=== PATIENT | male | born 1935 | race Caucasian/White ===

== ENCOUNTER → 2023-01-19 | Outpatient (CLI) | payer MEDICARE, BC, SELFPAY ==
--- NOTE | 2023-01-19 08:03 | CR.ITP_ITS ---
Diagnosis - General Information Admitting Diagnosis: S/P TAVR Secondary Diagnosis: HTN, HLD, COPD, Asthma Personal Learning Style:: Audio/Visual, Written Barriers to Learning: Hearing Impairment, Vision Impairment Stage of change r/t lifestyle modifications:: Action Gave educational material for:: Treating Heart Disease, Emotions & Heart Disease, Stress Management & Relaxation, Sleep Disorders & Heart Disease, How The Heart Works, What it means to have Heart Disease, How Coronary Artery Disease is Diagnosed, Heart Procedures, What Heart Medications Do, Risk Factors & Modifications, Living an Active Life, Nutrition - Education/Goals Individual Counseling: Initial Assessment: Abnormal Cholesterol Levels, High Blood Pressure, Overweight/Obesity Cardiac Rehabilitation Goals: 1. Maintain the individual as the primary focus of care. 2. To improve the patient's quality of life. 3. Identification of cardiac risk factors and provide cardiac risk factor management. 4. Enhance the psychosocial status of the patient. 5. Reconditioning enough to allow the patient to resume customary activities. 6. Control symptoms of cardiac disease Personal Goals: Initial Assessment: Improve muscle strength and endurance, Control risk factors (learn risk factor modification) Scale for measuring improvement of personal goals: Enter appropriate number in Comments. 2 = Unchanged. 3 = Slightly Better. 4 = Moderate Improvement. 5 = Met my Goal - Diagnosis & Disease Process Outcomes/Goals: Pt IDs own risk factors & lifestyle modifications by Session 10, Verbalizes symptoms of angina & response by session 3., Pt independently manages Plan/Interventions: Assist Pt to ID & engage in lifestyle modification to reduce CVD risk, Instruct on individual risk factors, Review symptoms of angina & emergency actions, Review secondary diagnosis & identify educational needs. - Safety Referral to Physical Therapy: No Referral to [facility] Case Management: No Fall Risk Assessed:: Yes Assistive Devices:: None Exercise - Initial Assessment - Visit Date of Eval: 01/19/23 Session #:: 0 - Pre-CR Evaluation. Patient previously completed 10 of his 36 sessions in [place] before returning to [place]. Mets: Pre-: >7 METS for 30 minutes by discharge - Physician Prescribed Exercise Modalities: Treadmill, Airdyne, NuStep Frequency: 3x/week for 12 weeks [36 sessions] Intensity: 60-80% of age predicted maximum heart rate reserve Duration: 30 - 45 minutes Current METSs:: 3.5 Target Heart Rate:: 101-114 Maximum Excercise HR:: 98 Resting Blood Pressure: 143/83 Maximum Exercise Blood Pressure: 138/66 EKG Type: Normal Sinus Rhythm w/Left Bundle Branch Block Current Physical Activity or Exercising minutes: 47 min - Outcomes & Goals Goals:: Verbalizes understanding of THR, RPE & goal METS by session 6, Documents in home exercise log/reports 30 min aerobic 5 day/wk by DC, Demonstrates accurate pulse taking by DC - Intervention & Plan Exercise Program Goals: Instruct on personal THR & RPE, Instruct on MET level & personal MET goal, Show patient to take own pulse /validate performance until accurate, Instruct on home exercise - Physical Activity Home Exercise Physical Activity - Home Exercise: Safe Exercise, Warm-up, Self-monitoring, Cool-Down, Home Exercise > 30 min Daily, Sitting Time <3 hours/daily - Outcomes & Goals Outcomes/Goals: Demonstrates correct Warm-up/exercise Cool-Down (S3) if = 2.5 METs, Verbalizes symptoms of exercise intolerance by Session 3 (S3), Demonstrate safe equipment use (S3) & follows exercise prescrition (6) - Intervention & Plan Plan/Intervention: Instruct warm-up & cool-down if exercising at > 2 METs, Instruct on symptoms of exercise intolerance & actions to take, Instruct & monitor on saf, Assess intial functional capacity & safety risk Nutrition - Initial Assessment - Program Goals Nutrition Program Goals: LDL <100 optimal. 100 - 129 Near optimal. 130 - 159 Borderline High. 160 - 189 High. Total Cholesterol <200 desirable. 200 - 239 Borderline High. >/= 240 High. HDL < 40 Low >/=60 High. Triglycerides <150 desirable. <199 optimal. VlDL 5 - 40. HgbA1C <7%. BMI <25 Patient has diagnosis of Hyperlipidemia (ICD E78)?: Yes - Visit Date of Assessment:: 01/19/23 Session #:: 0 - COmpleted 10 sessions in [place] - Cholesterol/Lipids (Other Core Measures) Determine presence & major risk factors that modify LDL goal: Hypertension or hypertensive medication, Family history of premature CHD in Male < 55 years: female <65 yearsFa, Age men > 45 years; women >/= 55 years Outcomes/Goals: Pt IDs own risk factors & lifestyle modifications by Session 10, Pt independently manages Intervention/Plan: Instruct on personal lipid levels & lipid goals/NCEP guidelines, Instruct on cholesterol Referral to dietitian:: Yes - Medical Nutrition Therapy - Diabetes (Other Core Measures) Diabetes Type: Not Applicable - Weight Mgt (Other Care) Height: 5 ft 11.5 in Weight:: 216 lb BMI: 29.7 Diagnosis Overweight/Obesity BMI> 30% ICD-10 E66: No Diagnosis High BMI/Morbid Obesity BMI> 35% ICD-10 Z68: No Outcomes/Goals: Pt sets, maintains & shows weight loss goal & trend during rehab Intervention/Plan: Instruct on ideal BMI & set weight loss goal w/patient, Assist pt to ID & incorporate diet changes for weight loss by S9 - Healthy Eating Habits Will attend diet classes:: Yes Outcomes/Goals:: Consume diet rich in vegs,fruits,whole grain/high fiber,fish,lean meat, Limit sat/trans fats,cholesterol & added salts & sugars Intervention/Plan:: Assess current eating habits - Education Gave educational materials for:: Healthy eating Nutrition - 30-Day Assessment Nutrition - 60-Day Assessment Nutrition - 90-Day Assessment Nutrition - Final Assessment Core - Initial Assessment - Visit Date of Eval: 01/19/23 Session #:: 0 - Completed 10 session in [place]; transferring care to [facility]. - Medication Compliance Preventative Medication(s):: Aspirin, Statin/lipid, Beta shelli H/O mental health issues: depression, anxiety, or addiction?: No Doesn?t believe in the benefits of treatment?: No Believes medications are unnecessary or harmful?: No Has a concern about medication side effects?: No Expresses concern over the cost of medications?: No Outcomes/Goals: Verbalizes medications,desired effect & common side effects @ DC, Pt self-reports following medication regimen, Keeps card in wallet w/medications listed by DC Interventions/plans: Instruct on medication effects & side effects, Review medication list w/patient every two weeks, Instruct importance of taking meds as ordered & assist problem solving - Tobacco Use Tobacco Use: Non-smoker - Hypertension Hypertension Diagnosis:: Hypertension ICD-10 I10 Resting Blood Pressure:: 143/83 [employer] [place] [employer] Hypertension Guidelines: [employer] [place] [employer] Hypertension Guidelines. Normal BP Less than 120/80. Elevated BP 120/80. Hypertension Stage 1: BP 130-139/80-89. Hypertesnion Stage 2: BP 140 or higher/90 or higher. Hypertension Crisis: BP higher than 180/120 Peak Exercise Blood Pressure:: 138/66 Outcomes/Goals: Able to verbalize/achieve optimal blood pressure <130/80, Incorporates diet changes & exercise for blood pressure control by DC Interventions/plan: Instruct on optimal blood pressure, hypertension & medications, Instruct on effects of sodium, alcohol, stress, exercise &hypertension - Tobacco Cessation Referral Smoking Cessation Referral:: No Individual Education/Counseling:: No Education Schedule Given:: Yes Core - 30-Day Assessment Core - 60-Day Assessment Core - 90 Day Assessment Core - Final Assessment Psychosocial - Initial Assess - VIsit Date of Eval: 01/19/23 Session #:: 0 - Completed 10 sessions completed in [place] Not Applicable: Yes History of previous Mental disease:: No - Psychosocial Test Tool Used:: [place] QOL Cardiac, PHQ-9 Questionnaire phq-9 Severity: Severity. 1-4 Minimal Depression. 5-9 Mild Depression. 10-14 Moderate Depression. 15-19 Moderately Sever Depression. 20-27 Severe Depression. Rule: - Referral to Behavioral Health PS - Interventions: Yes Attend Stress Management Classes, No Referral to Behavioral Health if PHQ-9 score >9:, No Referral to [facility], No Referral to Physician if PHQ-9 if score is 5-9: - Outcomes/Goals: See list Psychosocial Outcomes/Goals:: ID's personal stressors & 2 strategies to manage stress by discharge - Intervention/Plan: See List Interventions/Plan:: Assess stressors,coping strategies & signs of derpression on admission, Instruct/assist pt to develop coping & personal stress Mgt strategies, Instruct patient to recognize signs & symptoms of depression, Instruct patient to recog Psychosocial - 30-Day Assess Psychosocial - 60-Day Assess Psychosocial - 90-Day Assess Psychosocial - Final Assessmen Patient Health Questionnaire Initial Assessment 1. Little interest or pleasure in doing things: Not at all 2. Feeling down, depressed, or hopeless: Not at all 3. Trouble falling or staying asleep, or sleeping too much: Nearly every day 4. Feeling tired or having little energy: Not at all 5. Poor appetite or overeating: Not at all 6. Feeling bad about yourself -- or that you are a failure or have let yourself or your family down: Not at all 7. Trouble concentrating on things, such as reading the newspaper or watching television: Not at all 8. Moving or speaking so slowly that other people could have noticed. Or the opposite - being so fidgety or restless that you have been moving around a lot m ore than usual: Not at all 9. Thoughts that you would be better off , or of hurting yourself in some way: Not at all How difficult have these problems made it for you to do your work, take care of things at home, or get along with other people?: Not difficult at all Total Score: 3 EDGARDO-Q SV Test - Statements CAD is a disease of the arteries in the heart: I Don't Know Examples of risk factors for heart disease: True Angina is chest pain or discomfort: True The benefits of resistance training include: True Eating more meat and dairy products: False Anti-platelet medications such as aspirin are important: True The only effective way to manage stress: False An exercise warm-up slowly increases heart rate: True Prepared, processed foods usually have high sodium: True Depression is common after a heart attack: I Don't Know The statin medications lower cholesterol: I Don't Know To control blood pressure, lower the amount of sodium: True If someone gets chest discomfort during walking: False Transfats are partially hydrogenated vegetable oils: True Sleep apnea that is not treated increases the risk: I Don't Know To control cholesterol, one should become a vegetarian: False Someone knows if he/she is exercising at the right level: True Diabetes cannot be prevented with exercise & health eating: I Don't Know Stress is a large risk for heart attack: True A diet that can help lower blood pressure is rich in: True - Total Score Total Correct Responses: 15 Self-Efficacy Initial Assessment We would like to know how confident you are in doing certain activities. Please select your confidence level for:: Select your confidence level for the following using the scale 1-10 where 1 is not at all confident and 10 is totally confident. Your score is the average of all 6 responses. Fatigue: How confident are you that you can keep the fatigue caused by your disease from interfering with the things you want to do? Select Number: 10 Physical Discomfort or Pain: How confident are you that you can keep the physical discomfort or pain of your disease from interfering with the things you want to do? Select Number: 10 Emotional Distress: How confident are you that you can keep the emotional distress caused by your disease from interfering with the things you want to do? Select Number: 10 Other Symptoms or Health Problems: How confident are you that you can keep other symptoms or health problems from interfering with the things you want to do? Select Number: 10 Different Tasks and Activities: How confident are you that you can do the different tasks and activities needed to manage your health condition so as to reduce your need to see a doctor? Select Number: 5 Medication: How confident are you that you can do things other than just taking medication to reduce how much your illness affects your everyday life? Select Number: 10 Total Score:: 9 Nutrition Survey - Nutrition Survey Initial Have you lost >10 lbs over the past 2 months without trying?: No Are you following a special diet at home for diabetes, low fat, or low salt?: Yes Are you interested in meeting with a dietitian for help understanding your diet?: No Do you eat less than 3 meals a day?: Yes Do you eat fatty meats (quintero, sausage, ribs, etc), fried foods, desserts, large amounts of salad dressings, margarine, butter, or cheese most days?: No Do you have food allergies? [Enter types in comment field]: Yes - PEANUTS, WATER CHESTNUTS, PEAS, EDAMEMS Do you eat in restaurants more than 3 times a week?: No Do you season food with salt, seasoning salt, or garlic salt?: No Do you used canned, boxed, frozen meals, or soups, seasoning packets?: No Total Score:: 3
--- NOTE | 2023-01-19 08:03 | PCM.CR.HP2 ---
CR - History & Physical - General Arrival date:: 01/19/23 Arrival time:: 08:04 Date of Referral:: 01/17/23 Date of CR Evaluation:: 01/19/23 Referring Physician: Dr. Almeida @ [facility] Primary Diagnosis: S/P TAVR - History of Present Cardiac Event Onset Date: Enter Onset Date of cardiac illnesses in Comment field below Heart valve replacement or repair:: Yes - 09/24/2022 Dr. Arce in [place] Type of Symptoms:: Aortic valve stenosis and insufficiency Interventions with present event:: TAVR Were there any complications?: None - Sleep Disorder Evaluation Hx of Sleep Apnea: No Do you snore loudly (louder than talking or can be heard through closed doors)?: Yes Do you often feel tired/ fatigued/ sleepy during daytime?: Yes Has anyone observed you stop breathing during sleep?: No History of Hypertension (for STOP score): Yes STOP Results: Positive - Medications Home Medications: Ambulatory Orders Medication Instructions Recorded amlodipine 5 mg tablet 5 mg PO BID 01/19/23 azelastine-fluticasone 137 mcg-50 See Rx Instructions .Route .COMPLEX 01/19/23 mcg/spray nasal spray ezetimibe 10 mg tablet 10 mg PO DAILY 01/19/23 fluticasone propionate 115 2 puff inhalation BID 01/19/23 mcg-salmeterol 21 mcg/actuation HFA inhaler (Advair HFA) fluticasone propionate 50 1 spray intranasal BID 01/19/23 mcg/actuation nasal spray,suspension irbesartan 300 mg tablet 300 mg PO DAILY 01/19/23 levalbuterol tartrate 45 2 puff inhalation Q6H 01/19/23 mcg/actuation aerosol inhaler ddkdgvpr-lpa-fqulf acid 300 1 tab PO DAILY 01/19/23 mcg-lycopene 600 mcg-lutein 300 mcg tablet (Centrum Silver Men) nitroglycerin 0.4 mg sublingual 0.4 mg sublingual Q5M PRN Chest 01/19/23 tablet Pain tamsulosin 0.4 mg capsule 0.8 mg PO QHS 01/19/23 - Allergies Allergies/Adverse Reactions: Allergies Corticosteroids (Glucocorticoids) [steroids] Allergy (Verified 01/19/23 08:39) Rash formoterol [From Foradil Aerolizer] Allergy (Verified 01/19/23 08:39) Other peanut Adverse Reaction (Verified 01/19/23 08:39) Anaphylaxis peas Adverse Reaction (Verified 01/19/23 08:39) Anaphylaxis Penicillins Adverse Reaction (Verified 01/19/23 08:39) Anaphylaxis Advanced Directives - Advanced Directives Power of Carpenter Assistant: No Living Will: No Advance Directives Information Provided: Yes - Patient verbally expresses his DNR status adn wears a medical alert Advance Directives on File: No DNR Order?:: Yes - MOLST See MOLST form: No Past Medical History - Covid-19 Screening Fever: No Unexplained muscle aches: No Current respiratory symptoms: Yes - related to his COPD and his asthma Upper respiratory infections symptoms: No Gastro-intestinal symptoms: No [id number] symptoms: No Has tested positive for COVID-19 in last 30 days: Yes Date of testin01/19/23 - fully vaccinated Had contact w/person w/symptoms or Covid-19 (+) last 14 days: No Has High Risk Exposures ID'd by Health dept/Inf Control team: No 65 years or older:: Yes Lives in Assisted Living facility:: No Has a chronic lung disease or moderate to severe asthma:: Yes Has a serious heart condition:: No Immunocompromised:: No Severely obese (Body Mass Index of 40 or higher):: No Diabetic:: No Has chronic kidney disease undergoing dialysis:: No Has liver disease:: No - Past Medical Illness Medical History: Past Medical History (Last Updated 01/19/23 @ 08:44 by Roby Ramsey, WALLPAPER INSTALLER, MANAGEMENT MANAGER, BS) Aortic valve stenosis I35.0 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 Asthma J45.909 Carcinoma C80.1 Chronic knee pain M25.569, G89.29 Chronic obstructive pulmonary disease (COPD) J44.9 Congestive heart failure (CHF) I50.9 Coronary arteriosclerosis I25.10 Fatigue R53.83 Heart murmur R01.1 Hyperlipidemia E78.5 Hypertension I10 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 Non-rheumatic aortic stenosis I35.0 Osteoarthritis M19.90 Parkinsons disease G20 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, M22.2X2 Tremor, essential G25.0 - Past Surgical History Surgical History: Past Surgical History (Last Updated 01/19/23 @ 08:44 by Roby Ramsey, WALLPAPER INSTALLER, MANAGEMENT MANAGER, BS) S/P lumbar fusion Z98.1 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 Surgical History: appendectomy Social History - Smoking History Smoking Status: Former smoker Years Smokin - age 9 to 17 hasn't smoked in 79 years Hx Tobacco Use: No Hx Smoking Exposure: No - Alcohol Use Alcohol Usage: No - might have one beer per year - Substance Abuse Hx Substance Use: No - Occupation Occupation (List type of work in comments):: Retired - Hobbies, Recreation, Social Activities Hobbies: Other - gardening, fishing, vacationing in [place] winter months Recreational Activities: I am able to engage in all my recreational activities - but not to the degree of previous yeasr due to age related. Social Environment - Status Marital Status: - Current Living Arrangements Living Environment:: Spouse - Children How many children do you have?: 2 Do any of your children live nearby?: No - [facility] - Safety Do you feel safe in your surroundings?: Yes - Assistance Do you need any assistance at home?: no Review of Systems - Review of Systems Hints: Right click = Denies ([place]). Left click = Reports ([place]) Review of Present Symptoms: Reports: Shortness of Breath with Exertion - carries his inhalers due to asthma and his COPD. SOmetimes if he just takes a break it will go away., Fatigue, Appetite - Normal, Appetite - Special Diet, Sleep - Normal. Denies: Shortness of Breath at Rest, Dizziness/Lightheadedness - has had previous falls. One episode stood up and blacked out injuring his back. 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, femorral osteoarthtitis Pain Level: 0/10 Risk Factor Assessment - Vital Signs Temperature: 98.7 F Respiratory Rate: 16 Pulse Ox: 95 Blood Pressure: 143/83 - Pulse Pulse Rate: 81 Pulse Rhythm: Regular - Hypertension How long have you been treated?: 4 years - Obesity Height: 5 ft 11.5 in Weight:: 216 lb Weight in Pounds: 216.0 lbs Weight Source: Stated by Patient Body Mass Index (BMI): 29.7 Nutritional Referral for Obesity: No - Physical Inactivity Physical Inactivity: Recreational activity - gardening - Risk Stratification Risk Guidelines: Lowest Risk: Risk Factor for Smoking, Risk Factor for Dyslipidemia, Risk Factor for Diabetes, Risk Factor for Sedentary Lifestyle, Risk Factor for Depression, Moderate Risk: Risk Factor for Obesity - BMI 29, Risk Factor for Hypertension - 143/83 Motivation - Motivation to Participate On a scale of 1 to 10, how prepared are you to commit to attending program?: 10 What do you see as barriers to successfully being able to complete the program?: What do you see as the benefits of succesfully completing the program? In other words, what do you hope to get out of participating in the program?: Healthier, regaining my strength Are there issues you are dealing with that will interfere with completing the program?: no Do you have a spouse or signficant other, family or friends who will help support you to complete the program?: yes
[2023-01-19 08:53] VITALS: BP 143/83; PULSE 81; RESP 16; TEMP 37.1; O2SAT 95; BMI 29.7
[2023-01-19 09:36] VITALS: BP 138/66; BP 143/83; BMI 29.7
== END | disposition home or self-care (01) ==
LOC: CR 08:02
PROVIDERS: PCP Family Medicine; Referring Provider Internal Medicine Cardiovascular Disease; Visit Provider Internal Medicine Cardiovascular Disease
DX: Z95.4 Presence of other heart-valve replacement (principal)

== ENCOUNTER 2023-01-21 09:07 | Outpatient (RCR) | payer MEDICARE, BC, SELFPAY ==
[2023-01-19 09:12] VITALS: BMI 29.7
== END 2023-01-23 23:59 ==
LOC: CR 09:07
PROVIDERS: PCP Family Medicine
DX: Z95.4 Presence of other heart-valve replacement (principal)
CPT/HCPCS: 93798

== ENCOUNTER 2023-02-23 09:30 | Outpatient (RCR) | payer MEDICARE, BC, SELFPAY ==
[2023-01-19 09:36] VITALS: BMI 29.7
--- NOTE | 2023-02-18 13:10 | PCM.CR.ITP ---
Diagnosis Exercise - 30-day Assessment - Visit Date of Eval: 02/18/23 Session #:: 22 - Physician Prescribed Exercise Modalities: Treadmill, Airdyne, NuStep Frequency: 3x/week for 12 weeks [36 sessions] Intensity: 60-80% of age predicted maximum heart rate reserve Current METSs:: 3.5 Target Heart Rate:: 101-114 Current RPE:: 13 Maximum Excercise HR:: 92 Resting Blood Pressure: 150/62 Maximum Exercise Blood Pressure: 154/58 EKG Type: NSR with occas PAC's and PVC's - Outcomes & Goals Goals:: Verbalizes understanding of THR, RPE & goal METS by session 6, Documents in home exercise log/reports 30 min aerobic 5 day/wk by DC, Demonstrates accurate pulse taking by DC, Other additional outcome/goals: see below - Intervention & Plan Exercise Program Goals: Instruct on personal THR & RPE, Instruct on MET level & personal MET goal, Show patient to take own pulse /validate performance until accurate, Instruct on home exercise, Other additional plan/int - 30-day Reassessments 30 day Reassessments:: Progressing - pulse taking demonstrated - Physical Activity Home Exercise Physical Activity - Home Exercise: Safe Exercise, Warm-up, Self-monitoring, Cool-Down, Home Exercise > 30 min Daily, Sitting Time <3 hours/daily - Outcomes & Goals Outcomes/Goals: Demonstrates correct Warm-up/exercise Cool-Down (S3) if = 2.5 METs, Verbalizes symptoms of exercise intolerance by Session 3 (S3), Demonstrate safe equipment use (S3) & follows exercise prescrition (6), Other: See below - Intervention & Plan Plan/Intervention: Instruct warm-up & cool-down if exercising at > 2 METs, Instruct on symptoms of exercise intolerance & actions to take, Instruct & monitor on saf, Assess intial functional capacity & safety risk, Other See below - 30-day Reassessments 30 day Reassessments:: Progressing - cool down encouraged Nutrition - Initial Assessment Nutrition - 30-Day Assessment - Program Goals Nutrition Program Goals: LDL <100 optimal. 100 - 129 Near optimal. 130 - 159 Borderline High. 160 - 189 High. Total Cholesterol <200 desirable. 200 - 239 Borderline High. >/= 240 High. HDL < 40 Low >/=60 High. Triglycerides <150 desirable. <199 optimal. VlDL 5 - 40. HgbA1C <7%. BMI <25 Patient has diagnosis of Hyperlipidemia (ICD E78)?: Yes - Visit Date of Assessment:: 02/18/23 Session #:: 22 - Cholesterol/Lipids (Other Core Measures) Determine presence & major risk factors that modify LDL goal: Hypertension or hypertensive medication, Low HDL cholesterol <40 mg/dL*, Family history of premature CHD in Male < 55 years: female <65 yearsFa, Age men > 45 years; women >/= 55 years Outcomes/Goals: Pt IDs own risk factors & lifestyle modifications by Session 10, Verbalizes symptoms of angina & response by session 3., Pt independently manages, Other Additional Outcomes/Goals: Intervention/Plan: Advocate for lipid panel cholesterol medication if applicable, Instruct on personal lipid levels & lipid goals/NCEP guidelines, Instruct on cholesterol, Other additional plan/int Referral to dietitian:: No - pt seen 01/24/23 30-day Reassessments:: Progressing - risk factors reviewed - Diabetes (Other Core Measures) Diabetes Type: Not Applicable - Weight Mgt (Other Care) Height: 5 ft 11.5 in Weight:: 95.708 kg BMI: 29.0 Diagnosis Overweight/Obesity BMI> 30% ICD-10 E66: No Diagnosis High BMI/Morbid Obesity BMI> 35% ICD-10 Z68: No Outcomes/Goals: Pt sets, maintains & shows weight loss goal & trend during rehab, Other additional outcomes/goals Intervention/Plan: Instruct on ideal BMI & set weight loss goal w/patient, Assist pt to ID & incorporate diet changes for weight loss by S9, Refer to Structured Weight Loss program as appropriate, Encourage goal of using 250-300dcal per session for weight loss, Other additional plan/interventions 30 day Reassessments:: Progressing - will attend nutrition class - Healthy Eating Habits Will attend diet classes:: Yes Outcomes/Goals:: Consume diet rich in vegs,fruits,whole grain/high fiber,fish,lean meat, Limit sat/trans fats,cholesterol & added salts & sugars, Other additional outcome/goals: Intervention/Plan:: Assess current eating habits, Other Additional plan/interventions 30-day Reassessments:: Progressing - will attend nutrition class - Education Gave educational materials for:: Signs & symptoms of hypoglycemia, Signs & symptoms of hyperglycemia, Relate diabetes to coronary artery disease, Healthy eating Nutrition - 60-Day Assessment Nutrition - 90-Day Assessment Nutrition - Final Assessment Core - Initial Assessment Core - 30-Day Assessment - Visit Date of Eval: 02/18/23 Session #:: 22 - Medication Compliance Preventative Medication(s):: Aspirin, Statin/lipid, Beta shelli Doesn?t believe in the benefits of treatment?: No Believes medications are unnecessary or harmful?: No Has a concern about medication side effects?: No Expresses concern over the cost of medications?: No Outcomes/Goals: Verbalizes medications,desired effect & common side effects @ DC, Pt self-reports following medication regimen, Keeps card in wallet w/medications listed by DC, Other additional outcome/goals: Interventions/plans: Instruct on medication effects & side effects, Review medication list w/patient every two weeks, Instruct importance of taking meds as ordered & assist problem solving, Other additional 30-day Reassessments:: Progressing - pt encouraged to take his meds - Tobacco Use Tobacco Use: Non-smoker - Hypertension Hypertension Diagnosis:: Hypertension ICD-10 I10 Resting Blood Pressure:: 150/62 [place] [employer] Hypertension Guidelines: [place] [employer] Hypertension Guidelines. Normal BP Less than 120/80. Elevated BP 120/80. Hypertension Stage 1: BP 130-139/80-89. Hypertesnion Stage 2: BP 140 or higher/90 or higher. Hypertension Crisis: BP higher than 180/120 Peak Exercise Blood Pressure:: 154/58 Outcomes/Goals: Able to verbalize/achieve optimal blood pressure <130/80, Incorporates diet changes & exercise for blood pressure control by DC, Other additional outcomes/goals Interventions/plan: Instruct on optimal blood pressure, hypertension & medications, Instruct on effects of sodium, alcohol, stress, exercise &hypertension, Other additional plan/interventions 30 day Reassessments:: Progressing - pt encouraged to take his meds - Tobacco Cessation Referral Smoking Cessation Referral:: No Individual Education/Counseling:: No Education Schedule Given:: Yes Core - 60-Day Assessment Core - 90 Day Assessment Core - Final Assessment Psychosocial - Initial Assess Psychosocial - 30-Day Assess - VIsit Date of Eval: 02/18/23 Session #:: 22 History of previous Mental disease:: No Psychosocial - 60-Day Assess Psychosocial - 90-Day Assess Psychosocial - Final Assessmen Patient Health Questionnaire 30-Day Re-eval Assessment 1. Little interest or pleasure in doing things: Not at all 2. Feeling down, depressed, or hopeless: Not at all 3. Trouble falling or staying asleep, or sleeping too much: Nearly every day 4. Feeling tired or having little energy: Not at all 5. Poor appetite or overeating: Not at all 6. Feeling bad about yourself -- or that you are a failure or have let yourself or your family down: Not at all 7. Trouble concentrating on things, such as reading the newspaper or watching television: Not at all 8. Moving or speaking so slowly that other people could have noticed. Or the opposite - being so fidgety or restless that you have been moving around a lot more than usual: Not at all 9. Thoughts that you would be better off , or of hurting yourself in some way: Not at all How difficult have these problems made it for you to do your work, take care of things at home, or get along with other people?: Not difficult at all Total Score: 3 Self-Efficacy 30-Day Re-eval Assessment We would like to know how confident you are in doing certain activities. Please select your confidence level for:: Select your confidence level for the following using the scale 1-10 where 1 is not at all confident and 10 is totally confident. Your score is the average of all 6 responses. Fatigue: How confident are you that you can keep the fatigue caused by your disease from interfering with the things you want to do? Select Number: 10 Physical Discomfort or Pain: How confident are you that you can keep the physical discomfort or pain of your disease from interfering with the things you want to do? Select Number: 10 Emotional Distress: How confident are you that you can keep the emotional distress caused by your disease from interfering with the things you want to do? Select Number: 10 Other Symptoms or Health Problems: How confident are you that you can keep other symptoms or health problems from interfering with the things you want to do? Select Number: 10 Different Tasks and Activities: How confident are you that you can do the different tasks and activities needed to manage your health condition so as to reduce your need to see a doctor? Select Number: 5 Medication: How confident are you that you can do things other than just taking medication to reduce how much your illness affects your everyday life? Select Number: 10 Total Score:: 9 Nutrition Survey
[2023-02-18 13:28] VITALS: BP 150/62; BP 154/58; BMI 29.0
== END 2023-02-23 23:59 ==
LOC: CR 09:30
PROVIDERS: PCP Family Medicine
DX: Z95.4 Presence of other heart-valve replacement (principal)
CPT/HCPCS: 93798; 97802

== ENCOUNTER 2023-03-25 09:30 | Outpatient (RCR) | payer MEDICARE, BC, SELFPAY ==
[2023-02-18 13:28] VITALS: BMI 29.0
[2023-02-24 00:42] VITALS: BP 150/62; BP 154/58
--- NOTE | 2023-03-21 10:48 | CR.ITP_ITS ---
Diagnosis Exercise - 60-day Assessment - Visit Date of Eval: 03/21/23 Session #:: 34 - Physician Prescribed Exercise Modalities: Treadmill, Airdyne, NuStep Frequency: 3x/week for 12 weeks [36 sessions] Intensity: 60-80% of age predicted maximum heart rate reserve Current METSs:: 4 Target Heart Rate:: 101-114 Current RPE:: 12-14 Maximum Excercise HR:: 106 Resting Blood Pressure: 144/58 Maximum Exercise Blood Pressure: 162/58 EKG Type: NSR with rare PAC and PVC. One vent couplet. 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 - Outcomes & Goals Goals:: Verbalizes understanding of THR, RPE & goal METS by session 6, Documents in home exercise log/reports 30 min aerobic 5 day/wk by DC, Demonstrates accurate pulse taking by DC, Other additional outcome/goals: see below - Intervention & Plan Exercise Program Goals: Instruct on personal THR & RPE, Instruct on MET level & personal MET goal, Show patient to take own pulse /validate performance until accurate, Instruct on home exercise, Other additional plan/int - 30-day Reassessments 30 day Reassessments:: Met - Physical Activity Home Exercise Physical Activity - Home Exercise: Safe Exercise, Warm-up, Self-monitoring, Cool-Down, Home Exercise > 30 min Daily, Sitting Time <3 hours/daily - Outcomes & Goals Outcomes/Goals: Demonstrates correct Warm-up/exercise Cool-Down (S3) if = 2.5 METs, Verbalizes symptoms of exercise intolerance by Session 3 (S3), Demonstrate safe equipment use (S3) & follows exercise prescrition (6), Other: See below - Intervention & Plan Plan/Intervention: Instruct warm-up & cool-down if exercising at > 2 METs, Instruct on symptoms of exercise intolerance & actions to take, Instruct & monitor on saf, Assess intial functional capacity & safety risk, Other See below - 30-day Reassessments 30 day Reassessments:: Met Nutrition - Initial Assessment Nutrition - 30-Day Assessment Nutrition - 60-Day Assessment - Program Goals Nutrition Program Goals: LDL <100 optimal. 100 - 129 Near optimal. 130 - 159 Borderline High. 160 - 189 High. Total Cholesterol <200 desirable. 200 - 239 Borderline High. >/= 240 High. HDL < 40 Low >/=60 High. Triglycerides <150 desirable. <199 optimal. VlDL 5 - 40. HgbA1C <7%. BMI <25 Patient has diagnosis of Hyperlipidemia (ICD E78)?: Yes - Visit Date of Assessment:: 03/21/23 Session #:: 34 - Cholesterol/Lipids (Other Core Measures) Determine presence & major risk factors that modify LDL goal: Hypertension or hypertensive medication, Low HDL cholesterol <40 mg/dL*, Family history of premature CHD in Male < 55 years: female <65 yearsFa, Age men > 45 years; women >/= 55 years Outcomes/Goals: Pt IDs own risk factors & lifestyle modifications by Session 10, Verbalizes symptoms of angina & response by session 3., Pt independently manages, Other Additional Outcomes/Goals: Intervention/Plan: Advocate for lipid panel cholesterol medication if applicable, Instruct on personal lipid levels & lipid goals/NCEP guidelines, Instruct on cholesterol, Other additional plan/int Referral to dietitian:: No 30-day Reassessments:: Met - Diabetes (Other Core Measures) Diabetes Type: Not Applicable - Weight Mgt (Other Care) Height: 5 ft 11.5 in Weight:: 95.708 kg BMI: 29.0 Diagnosis Overweight/Obesity BMI> 30% ICD-10 E66: No Diagnosis High BMI/Morbid Obesity BMI> 35% ICD-10 Z68: No Outcomes/Goals: Pt sets, maintains & shows weight loss goal & trend during rehab, Other additional outcomes/goals Intervention/Plan: Instruct on ideal BMI & set weight loss goal w/patient, Assist pt to ID & incorporate diet changes for weight loss by S9, Refer to Structured Weight Loss program as appropriate, Encourage goal of using 250- 300dcal per session for weight loss, Other additional plan/interventions 30 day Reassessments:: Met - Healthy Eating Habits Will attend diet classes:: Yes Outcomes/Goals:: Consume diet rich in vegs,fruits,whole grain/high fiber,fish,le an meat, Limit sat/trans fats,cholesterol & added salts & sugars, Other additional outcome/goals: Intervention/Plan:: Assess current eating habits, Other Additional plan/inter ventions 30-day Reassessments:: Met - Education Gave educational materials for:: Signs & symptoms of hypoglycemia, Signs & symptoms of hyperglycemia, Relate diabetes to coronary artery disease, Healthy eating Nutrition - 90-Day Assessment Nutrition - Final Assessment Core - Initial Assessment Core - 30-Day Assessment Core - 60-Day Assessment - Visit Date of Eval: 03/21/23 Session #:: 34 - Medication Compliance Preventative Medication(s):: Aspirin, Statin/lipid, Beta shelli Doesn?t believe in the benefits of treatment?: No Believes medications are unnecessary or harmful?: No Has a concern about medication side effects?: No Expresses concern over the cost of medications?: No Outcomes/Goals: Verbalizes medications,desired effect & common side effects @ DC, Pt self-reports following medication regimen, Keeps card in wallet w/medications listed by DC, Other additional outcome/goals: Interventions/plans: Instruct on medication effects & side effects, Review medication list w/patient every two weeks, Instruct importance of taking meds as ordered & assist problem solving, Other additional 30-day Reassessments:: Met - Tobacco Use Tobacco Use: Non-smoker - Hypertension Hypertension Diagnosis:: Hypertension ICD-10 I10 Resting Blood Pressure:: 144/58 [place] [employer] Hypertension Guidelines: [place] [employer] Hypertension Guidelines. Normal BP Less than 120/80. Elevated BP 120/80. Hypertension Stage 1: BP 130-139/80-89. Hypertesnion Stage 2: BP 140 or higher/90 or higher. Hypertension Crisis: BP higher than 180/120 Peak Exercise Blood Pressure:: 162/58 Outcomes/Goals: Able to verbalize/achieve optimal blood pressure <130/80, Incorporates diet changes & exercise for blood pressure control by DC, Other ad ditional outcomes/goals Interventions/plan: Instruct on optimal blood pressure, hypertension & medications, Instruct on effects of sodium, alcohol, stress, exercise &hypertens ion, Other additional plan/interventions 30 day Reassessments:: Progressing - pt encouraged to take his meds - Tobacco Cessation Referral Smoking Cessation Referral:: No Individual Education/Counseling:: No Education Schedule Given:: Yes Core - 90 Day Assessment Core - Final Assessment Psychosocial - Initial Assess Psychosocial - 30-Day Assess Psychosocial - 60-Day Assess - VIsit Date of Eval: 03/21/23 History of previous Mental disease:: No Psychosocial - 90-Day Assess Psychosocial - Final Assessmen Patient Health Questionnaire 60-Day Re-eval Assessment 1. Little interest or pleasure in doing things: Not at all 2. Feeling down, depressed, or hopeless: Not at all 3. Trouble falling or staying asleep, or sleeping too much: Nearly every day 4. Feeling tired or having little energy: Not at all 5. Poor appetite or overeating: Not at all 6. Feeling bad about yourself -- or that you are a failure or have let yourself or your family down: Not at all 7. Trouble concentrating on things, such as reading the newspaper or watching television: Not at all 8. Moving or speaking so slowly that other people could have noticed. Or the opposite - being so fidgety or restless that you have been moving around a lot more than usual: Not at all 9. Thoughts that you would be better off , or of hurting yourself in some way: Not at all How difficult have these problems made it for you to do your work, take care of things at home, or get along with other people?: Not difficult at all Total Score: 3 Self-Efficacy 60-Day Re-eval Assessment We would like to know how confident you are in doing certain activities. Please select your confidence level for:: Select your confidence level for the following using the scale 1-10 where 1 is not at all confident and 10 is totally confident. Your score is the average of all 6 responses. Fatigue: How confident are you that you can keep the fatigue caused by your disease from interfering with the things you want to do? Select Number: 10 Physical Discomfort or Pain: How confident are you that you can keep the physical discomfort or pain of your disease from interfering with the things you want to do? Select Number: 10 Emotional Distress: How confident are you that you can keep the emotional distress caused by your disease from interfering with the things you want to do? Select Number: 10 Other Symptoms or Health Problems: How confident are you that you can keep other symptoms or health problems from interfering with the things you want to do? Select Number: 10 Different Tasks and Activities: How confident are you that you can do the different tasks and activities needed to manage your health condition so as to reduce your need to see a doctor? Select Number: 10 Medication: How confident are you that you can do things other than just taking medication to reduce how much your illness affects your everyday life? Select Number: 10 Total Score:: 10 Nutrition Survey
[2023-03-21 10:56] VITALS: BP 144/58; BP 162/58; BMI 29.0
== END 2023-03-25 23:59 ==
LOC: CR 09:30
PROVIDERS: PCP Family Medicine
DX: Z95.4 Presence of other heart-valve replacement (principal)
CPT/HCPCS: 93798

== ENCOUNTER 2024-04-29 11:56 | Emergency (ER) | payer MEDICARE, BC, SELFPAY ==
[2023-03-21 10:56] VITALS: BMI 29.0
[2024-04-29 11:58] VITALS: BP 158/72; PULSE 79; RESP 25; TEMP 37.1; O2SAT 95; BMI 28.3
--- NOTE | 2024-04-29 11:59 | NURSING ---
NO OLD EKGS
--- NOTE | 2024-04-29 12:12 | RAD_ITS ---
EXAM: XR CHEST, 2 VIEWS CLINICAL INDICATION: Cough, shortness of breath TECHNIQUE: Frontal and lateral views of the chest. COMPARISON: No relevant prior studies available. FINDINGS: LUNGS AND PLEURAL SPACES: Left pleural effusion and associated airspace disease which may be atelectasis or pneumonia. Minimal right basilar pulmonary opacity may be atelectasis or pneumonia. No pneumothorax. HEART: No significant abnormality. Cardiac silhouette not enlarged. MEDIASTINUM: Central airways and mediastinal contour are unremarkable. BONES/JOINTS: Degenerative changes in the spine and shoulders. No acute fracture. SOFT TISSUES: No significant abnormality. VASCULATURE: Atherosclerosis. TUBES, LINES AND DEVICES: Transcatheter aortic valve replacement (TAVR). RAD/Chest PA and Lateral IMPRESSION: 1. Left pleural effusion and associated airspace disease which may be atelectasis or pneumonia. Status post TAVR. 2. Minimal right basilar pulmonary opacity may be atelectasis or pneumonia. Electronically Signed: Rivera Lucia DO at 12:53 EDT ,
--- NOTE | 2024-04-29 12:12 | EKG12_ITS ---
Test Reason : SOB/SYNCOPE Blood Pressure : / mmHG Vent. Rate : 075 BPM Atrial Rate : 075 BPM P-R Int : 194 ms QRS Dur : 102 ms QT Int : 378 ms P-R-T Axes : 040 -29 016 degrees QTc Int : 422 ms Normal sinus rhythm Moderate voltage criteria for LVH, may be normal variant ( R in aVL , Fence product ) Borderline ECG Confirmed by Lobo Blank ([id number]), movie editor YUAN GENAO ([id number]) on 05/01/2024 1:50:33 PM Referred By: Confirmed By:Lobo Blank
--- NOTE | 2024-04-29 12:13 | EDS_ITS ---
HPI History of Present Illness Chief Complaint: Syncope Narrative Narrative: 88-year-old male past medical history of hypertension, status post TAVR with bovine valve replacement, presents with cough, shortness of breath and feeling that he cannot clear his lungs for the last 2 weeks. He states he had gone to urgent care about a week ago and was put on doxycycline. He took 1 dose of it and began having itching between his hands and itching in the back of his knees, so he quit taking it. He has a rescue inhaler which she has been using without relief. He denies any fevers or chills, but has cough and coarse breath sounds when he tries to clear his lungs. He also relates history that today, he was straining to have a bowel movement for at least an hour. Went to the bathroom and sat on the toilet, but nothing happened. After about an hour, he returned to the bathroom, sat down, was able to have a large bowel movement. He states when he was walking out of the bathroom, he felt very lightheaded, and may have passed out. He twisted his left back. He denies hitting his head or any other injury. He states he is mainly here because of the shortness of breath and cough and the inability to clear his lungs. [facility] Medical History Lumbar and sacral arthritis Fatigue Chronic knee pain Arthritis of facet joint of lumbar spine Heart murmur Osteoarthritis Patellofemoral arthralgia of both knees Asthma Chronic obstructive pulmonary disease (COPD) Congestive heart failure (CHF) Non-rheumatic aortic stenosis Aortic valve stenosis Coronary arteriosclerosis Hypertension Tremor, essential Parkinsons disease Hyperlipidemia Carcinoma Home Medications ?Medication ?Instructions ?Recorded ?Last Taken ?Type amlodipine 5 mg tablet 5 mg PO BID 01/19/23 Unknown History azelastine 137 mcg-fluticasone 50 See Rx Instructions .Route .COMPLEX 01/19/23 Unknown History mcg/spray nasal spray ezetimibe 10 mg tablet 10 mg PO DAILY 01/19/23 Unknown History fluticasone propionate 115 2 puff inhalation BID 01/19/23 Unknown History mcg-salmeterol 21 mcg/actuation HFA inhaler (Advair HFA) fluticasone propionate 50 1 spray intranasal BID 01/19/23 Unknown History mcg/actuation nasal spray,suspension irbesartan 300 mg tablet 300 mg PO DAILY 01/19/23 Unknown History levalbuterol tartrate 45 2 puff inhalation Q6H 01/19/23 Unknown History mcg/actuation aerosol inhaler [id number] 300 mcg-K 60 1 tab PO DAILY 01/19/23 Unknown History mcg-lycop 600 mcg-lutein 300 mcg tablet (Centrum Silver Men) nitroglycerin 0.4 mg sublingual 0.4 mg sublingual Q5M PRN Chest 01/19/23 Unknown History tablet Pain tamsulosin 0.4 mg capsule 0.8 mg PO QHS 01/19/23 Unknown History albuterol sulfate 90 mcg/actuation 1 - 2 puff inhalation Q4H PRN PRN 04/29/24 Unknown Rx aerosol inhaler (Ventolin HFA) Wheezing #1 ea levofloxacin 750 mg tablet 750 mg PO DAILY #6 tabs 04/29/24 Unknown Rx Allergy/AdvReac Type Severity Reaction Status Date / Time Corticosteroids Allergy Rash Verified 04/29/24 11:58 (Glucocorticoids) (steroids) formoterol (From Foradil Allergy Other Verified 04/29/24 11:58 Aerolizer) peanut AdvReac Anaphylaxis Verified 04/29/24 11:58 peas AdvReac Anaphylaxis Verified 04/29/24 11:58 Penicillins AdvReac Anaphylaxis Verified 04/29/24 11:58 Surgical History S/P lumbar fusion Status post transcatheter aortic valve replacement (TAVR) using bioprosthesis Social History Smoking Status: Unknown if ever smoked ROS ROS ED ROS Narrative Focused review of systems reveals no fever, no chills. Positive shortness of breath with occasionally productive cough. Positive dyspnea with mild dyspnea on exertion. No chest pain. No abdominal pain. No nausea or vomiting. He had constipation which resolved. He reports vasovagal syncope episode today and left low back pain with movement. EXAM Physical Exam Narrative Exam Narrative: Afebrile. Vital signs noted. Nontoxic-appearing. HEENT: Normocephalic. Atraumatic. PERRL, EOMI. Neck soft and supple. No point tenderness or step off. Wearing mask. Cardiovascular: Regular rate and rhythm. No murmurs, rubs, or gallops appreciated. Respiratory: Positive mild tachypnea. Bilateral expiratory wheezing bases. Gastrointestinal: Abdomen soft, nontender, with normoactive bowel sounds. No rebound or guarding. Neurological: Awake. Alert. Nonfocal, nonlateralizing. Moves all extremities. Skin: No rash. Normal color. No pallor. Musculoskeletal: No pedal edema. Full range of motion extremities. Const Vital Signs: 04/29/24 11:58 04/29/24 12:26 04/29/24 12:43 Temperature 98.7 F Temperature Source Temporal Pulse Rate 79 81 Respiratory Rate 25 H 18 Respiratory Pattern Normal Blood Pressure 158/72 H Blood Pressure Mean 100 Pulse Ox 95 Oxygen Delivery Method Room Air MDM MDM MDM Narrative Medical decision making narrative: In the differential diagnosis is vasovagal syncope versus cardiac syncope. He is more concerned about his lungs and difficulty breathing. Differential diagnosis includes but not limited to COPD versus bronchitis versus pneumonia versus CHF. Comprehensive workup was pursued. Chest x-ray and 2 views will be obtained and interpreted by myself independently. On my independent interpretation, he has bilateral infiltrates versus atelectasis with a left pleural effusion. I reviewed the radiology report which confirms my independent interpretation. I reviewed his laboratory work he has slight elevation in his white count to 11.1, with hemoglobin 10.8, platelet count normal at 219. Electrolyte panel significant for an prior chloride of 108 which I think is nonspecific, BUN of 24, creatinine normal at 1.15, glucose appropriately elevated at 134 with a normal anion gap of 5. High-sensitivity troponin is 12. BNP is only slightly elevated at 134, I do not feel he has exacerbation of CHF. Given that I feel he has a pneumonia, after DuoNeb aerosolized treatment, he states he feels the same. His pulse ox remains 95% on room air without evidence of hypoxia. EKG was obtained and interpreted by myself independently as normal sinus rhythm at 75 bpm without ectopy or acute ST changes. No STEMI. He states his inhaler is approximately 8-year-old, I wrote him a prescription for a new 1 and I will treat his pneumonia with Levaquin. He was given his first dose here in the emergency department and a prescription written for 6 more tablets to finish out a weeks therapy starting tomorrow. I feel he be discharged safely home with follow-up. Patient is agreeable to the plan and wants to discharge home. Return instructions to the emergency department were reviewed. Disposition is discharged home in stable condition History & Record Review Discussion w/independent historian: Patient Lab Data Attestation: I reviewed the patient's lab results. Labs: Laboratory Results - last 24 hr 04/29/24 12:20 WBC 11.1 H RBC 3.69 L Hgb 10.8 L Hct 33.5 L MCV 90.8 MCH 29.3 MCHC 32.2 RDW Std Deviation 42.1 RDW Coeff of Jamie 12.8 Plt Count 219 MPV 11.5 Immature Gran % (Auto) 2.100 H Neut % (Auto) 60.4 Lymph % (Auto) 13.0 L [place] % (Auto) 22.4 H Eos % (Auto) 1.8 Baso % (Auto) 0.3 Absolute Neuts (auto) 6.7 Absolute Lymphs (auto) 1.44 Nucleated RBC % 0 Diff Path Review May foll Sodium 139 Potassium 3.9 Chloride 108 H Carbon Dioxide 26.0 Anion Gap 5 BUN 24 H Creatinine 1.15 Estim Creat Clear Calc 53.49 Est GFR (MDRD) Af Amer 77 Est GFR (MDRD) Non-Af 64 BUN/Creatinine Ratio 20.9 H Glucose 134 H Calcium 8.9 Troponin I High Sens 12 B-Natriuretic Peptide 134.5 H Radiography Diagnostic Testing: Clinical Impression(s) from Imaging Studies Chest X-Ray 04/29/24 12:12 IMPRESSION: 1. Left pleural effusion and associated airspace disease which may be atelectasis or pneumonia. Status post TAVR. 2. Minimal right basilar pulmonary opacity may be atelectasis or pneumonia. Electronically Signed: Rivera Lucia DO at 12:53 EDT , Discharge Plan Triage Chief Complaint: Syncope ED Provider: Reynaldo Wray Dx/Rx/DC Orders Clinical Impression: Pneumonia, Pleural effusion, Vasovagal syncope Instructions: ED Pleural Effusion, ED Pneumonia (Adult), ED Fainting, Vagal Reaction Prescriptions: New albuterol sulfate [Ventolin HFA] 90 mcg/actuation HFA aerosol inhaler 1 - 2 puff inhalation Q4H PRN PRN (Reason: Wheezing) Qty: 1 0RF levofloxacin 750 mg tablet 750 mg PO DAILY Qty: 6 0RF No Action amlodipine 5 mg Tablet 5 mg PO BID tamsulosin 0.4 mg Capsule 0.8 mg PO QHS nitroglycerin 0.4 mg Tablet, Sublingual 0.4 mg SUBLINGUAL Q5M PRN (Reason: Chest Pain) Rx Instructions: do not exceed 3 doses per episode fluticasone propionate 50 mcg/actuation [place],Suspension 1 spray INTRANASAL BID Rx Instructions: administer into each nostril irbesartan 300 mg Tablet 300 mg PO DAILY ezetimibe 10 mg Tablet 10 mg PO DAILY levalbuterol tartrate 45 mcg/actuation Hfa Aerosol Inhaler 2 puff INHALATION Q6H fluticasone propion-salmeterol [Advair HFA] 115-21 mcg/actuation Hfa Aerosol Inhaler 2 puff INHALATION BID Centrum Silver Men 300-600-300 mcg Tablet 1 tab PO DAILY azelastine-fluticasone 137-50 mcg/spray [place],Non-Aerosol See Rx Instructions .ROUTE .COMPLEX Rx Instructions: administer into each nostril Primary Care Provider: Lavell Cummings Referrals: Lavell Cummings MD [Primary Care Provider] - 3-5 Days if not improving Activity Restrictions/Additional Instructions: Return with increased difficulty breathing, new or worsening symptoms. Print Language: Mohawk Disposition Disposition: Home, Self Care
[2024-04-29] MEDS: Ipratropium/Albuterol Sulfate 3 ML AMPUL.NEB INHALATION (12:30)
[2024-04-29 12:43] VITALS: PULSE 81; RESP 18
[2024-04-29 12:43] LABS: Absolute Lymphocyte Count 1.44 X10^3/uL (0.83-4.51); Absolute Neutrophil Count 6.7 X10^3/uL (2.0-7.7); Basophil# 0.03 X10^3/uL; Basophil% 0.3 % (0-1); Eosinophils% 1.8 % (0-5); Hematocrit 33.5 % (40-54); Hemoglobin 10.8 g/dL (13.0-16.5); Lymphocyte # 1.44 X10^3/ul (0.83-4.51); Mean Corp Hgb Conc 32.2 g/dL (32-36); Mean Corpuscular Hgb 29.3 pg (27.0-32.0); Mean Corpuscular Volume 90.8 fL (80-94); Mean Platelet Vol. 11.5 fl (6.2-12.0); Monocyte# 2.48 X10^3/uL; Monocyte% 22.4 % (0-10); NRBC Flagged by Analyzer 0 % (0-5); Neutrophil # 6.68 X10^3/uL (2.7-7.7); Neutrophil % 60.4 % (47-70); POSITIVE DIFFERENTIAL YES; Platelet Count 219 K/mm3 (150-450); RBC Distribution Width CV 12.8 % (11.6-14.6); RBC Distribution Width SD 42.1 fl (35.1-43.9); Red Blood Count 3.69 M/mm3 (4.6-6.2); White Blood Count 11.1 K/mm3 (4.4-11.0)
[2024-04-29 12:47] LABS: BNP,B-Type NATRIURETIC PEPTIDE 134.5 pg/mL (0-100)
[2024-04-29 12:49] LABS: Anion Gap 5 (5-15); BUN 24 mg/dL (7-18); BUN/Creat Ratio 20.9 RATIO (10-20); Calcium,Total 8.9 mg/dL (8.5-10.1); Chloride 108 mmol/L (98-107); Creatinine, Serum 1.15 mg/dL (0.70-1.30); EST Glomerular Filtration Rate 64 mL/min (>60); Est Glom Filt Rate - Afr Amer 77 mL/min (>60); Estimated Creatinine Clearance 53.49 ml/min; Glucose 134 mg/dL (74-106); Potassium 3.9 mmol/L (3.5-5.1); Sodium Level 139 mmol/L (136-145); Troponin-I HS 12 pg/mL (3.0-78.0)
[2024-04-29 12:56] LABS: Differential Indicated SCAN CRITERIA MET
[2024-04-29] MEDS: levoFLOXacin 750 MG Tablet PO (14:10)
[2024-04-29 14:11] VITALS: BP 135/57; PULSE 74; RESP 16; TEMP 36.7; O2SAT 95
[2024-04-30 13:33] LABS: Pathologist Review Reviewed
== END 2024-04-29 14:13 | disposition home or self-care (01) ==
PROVIDERS: Emergency Provider Emergency Medicine; PCP Family Medicine; Visit Provider Emergency Medicine
DX: J18.9 Pneumonia, unspecified organism (principal); G20.A1 Parkinson's disease without dyskinesia, without mention of fluctuations; I50.9 Heart failure, unspecified; I11.0 Hypertensive heart disease with heart failure; J44.0 Chronic obstructive pulmonary disease with (acute) lower respiratory infection; R55 Syncope and collapse; I25.10 Atherosclerotic heart disease of native coronary artery without angina pectoris; E78.5 Hyperlipidemia, unspecified; Z95.3 Presence of xenogenic heart valve
CPT/HCPCS: 71046; 80048; 83880; 84484; 85025; 93005; 94640; 99284; J7040; A4216

== ENCOUNTER 2024-05-01 13:40 | Emergency (ER) | payer MEDICARE, BC, SELFPAY ==
[2023-03-21 10:56] VITALS: BMI 29.0
[2024-05-01 13:42] VITALS: BP 170/72; PULSE 80; RESP 20; TEMP 36.6; O2SAT 95; BMI 28.4
[2024-05-01 13:45] VITALS: BP 170/72; PULSE 80; RESP 22; TEMP 36.7; O2SAT 95
--- NOTE | 2024-05-01 14:03 | CT_ITS ---
STUDY: CT CHEST WITHOUT CONTRAST REASON FOR EXAM: Male, 88 years old. Left rib injury due to a fall. Cough. RADIATION DOSAGE (If Supplied By Facility): CTDIvol = ( 10.75 ) mGy, DLP = ( 395.31 ) mGycm TECHNIQUE: Transaxial imaging was performed without the administration of intravenous contrast material. Individualized dose optimization techniques were used for this CT. COMPARISON: Comparison is made with prior chest radiograph dated April 29, 2024. FINDINGS: CHEST Consolidation in the left lower lobe. Increased markings at the right lung base suggestive of possible scarring and/or atelectasis. Small left pleural effusion. There are calcifications of the coronary arteries. There is evidence of prior aortic valve replacement. There are multiple small lymph nodes within the mediastinum, which are normal in size and morphology most compatible with reactive lymph hyperplasia. Normal hilar regions. Normal unenhanced pulmonary arteries. There is atherosclerotic calcification of the aortic arch with tortuosity and elongation of the aortic arch and descending thoracic aorta. There are multi-level degenerative changes of the thoracic spine. Multiple gallstones. Small amount of pericholecystic fluid. CT/Chest without Contrast IMPRESSION: Left lower lobe consolidation and small left pleural effusion. Mild scarring at the right lung base. Multiple gallstones. Small amount of pericholecystic fluid. Electronically Signed: Darion Moreno MD at 14:53 EDT ,
--- NOTE | 2024-05-01 14:18 | EDS_ITS ---
HPI History of Present Illness Chief Complaint: Chest Other Informant: patient Narrative Narrative: Patient present worsening left-sided chest pain worsened cough. He was seen 2 days ago for syncopal episode and a fall. States he may have hit the left side. Diagnosed with pneumonia currently on Levaquin. Overnight increasing pain with deep breaths. Concern for discomfort and wanted evaluation of this. No current active pain. No new falls or injuries. No new syncopal episodes. He lives alone. After evaluation review of records noted seen for syncopal episode there is questionable right lower lobe pneumonia therefore placed on Levaquin. Transition from doxycycline as he is treated at urgent care a week prior. [facility] Medical History Lumbar and sacral arthritis Fatigue Chronic knee pain Arthritis of facet joint of lumbar spine Heart murmur Osteoarthritis Patellofemoral arthralgia of both knees Asthma Chronic obstructive pulmonary disease (COPD) Congestive heart failure (CHF) Non-rheumatic aortic stenosis Aortic valve stenosis Coronary arteriosclerosis Hypertension Tremor, essential Parkinsons disease Hyperlipidemia Carcinoma Home Medications ?Medication ?Instructions ?Recorded ?Last Taken ?Type amlodipine 5 mg tablet 5 mg PO BID 01/19/23 Unknown History azelastine 137 mcg-fluticasone 50 See Rx Instructions .Route .COMPLEX 01/19/23 Unknown History mcg/spray nasal spray ezetimibe 10 mg tablet 10 mg PO DAILY 01/19/23 Unknown History fluticasone propionate 115 2 puff inhalation BID 01/19/23 Unknown History mcg-salmeterol 21 mcg/actuation HFA inhaler (Advair HFA) fluticasone propionate 50 1 spray intranasal BID 01/19/23 Unknown History mcg/actuation nasal spray,suspension irbesartan 300 mg tablet 300 mg PO DAILY 01/19/23 Unknown History levalbuterol tartrate 45 2 puff inhalation Q6H 01/19/23 Unknown History mcg/actuation aerosol inhaler [id number] 300 mcg-K 60 1 tab PO DAILY 01/19/23 Unknown History mcg-lycop 600 mcg-lutein 300 mcg tablet (Centrum Silver Men) nitroglycerin 0.4 mg sublingual 0.4 mg sublingual Q5M PRN Chest 01/19/23 Unknown History tablet Pain tamsulosin 0.4 mg capsule 0.8 mg PO QHS 01/19/23 Unknown History albuterol sulfate 90 mcg/actuation 1 - 2 puff inhalation Q4H PRN PRN 04/29/24 Unknown Rx aerosol inhaler (Ventolin HFA) Wheezing #1 ea levofloxacin 750 mg tablet 750 mg PO DAILY #6 tabs 04/29/24 Unknown Rx docusate sodium 100 mg capsule 100 mg PO BID #30 caps 05/01/24 Unknown Rx (Colace) tramadol 50 mg tablet 50 mg PO Q6H PRN pain #12 tabs 05/01/24 Unknown Rx Allergy/AdvReac Type Severity Reaction Status Date / Time Corticosteroids Allergy Rash Verified 05/01/24 13:42 (Glucocorticoids) (steroids) formoterol (From Foradil Allergy Other Verified 05/01/24 13:42 Aerolizer) peanut AdvReac Anaphylaxis Verified 05/01/24 13:42 peas AdvReac Anaphylaxis Verified 05/01/24 13:42 Penicillins AdvReac Anaphylaxis Verified 05/01/24 13:42 Surgical History S/P lumbar fusion Status post transcatheter aortic valve replacement (TAVR) using bioprosthesis Social History Smoking Status: Unknown if ever smoked ROS ROS ED Constitutional Constitutional ED: Denies chills, fever(s) or sweats Eyes Eyes: Denies change in vision ENT ENT ED: Denies dysphagia or sore throat Cardiovascular Cardiovascular: Denies chest pain, leg edema, palpitations or racing heartbeat Respiratory/Chest Respiratory/Chest: Reports cough; Denies dyspnea or dyspnea on exertion Gastrointestinal Gastrointestinal: Denies abdominal pain, diarrhea, nausea or vomiting Genitourinary Genitourinary ED: Denies dysuria, hematuria or urinary frequency Musculoskeletal Musculoskeletal: Denies back pain, extremity pain or neck pain Integumentary Denies rash or wounds Neurologic Neurologic: Denies headache(s), paresthesias or weakness EXAM Physical Exam Const Vital Signs: 05/01/24 13:42 05/01/24 13:45 05/01/24 13:49 Temperature 98 F 98.0 F Temperature Source Temporal Oral Pulse Rate 80 80 Respiratory Rate 20 H 22 H Respiratory Effort Short of Breath Blood Pressure 170/72 H 170/72 H Blood Pressure Mean 104 104 Pulse Ox 95 95 Oxygen Delivery Method Room Air Room Air 05/01/24 15:31 Temperature 97.8 F Temperature Source Pulse Rate 64 Respiratory Rate 18 Respiratory Effort Blood Pressure 134/78 H Blood Pressure Mean 96 Pulse Ox 99 Oxygen Delivery Method Positive well nourished and well developed General Appearance ED: well developed and NAD HEENT Reports moist mucous membranes normocephalic and atraumatic Eyes EOMs intact bilaterally and conjunctivae normal General Eye ED: Yes normal appearance of both eyes Neck no lymphadenopathy and supple General: Negative for tenderness Chest Wall Chest Narrative: Tender palpation left lower lateral ribs no crepitus no ecchymosis. Chest: Negative for tenderness Resp normal respiratory effort and normal air movement Effort and Inspection: symmetric chest movement; Negative for respiratory distress Cardio regular rate, regular rhythm and no murmurs Peripheral Pulses: pulses 2+ throughout GI normal to inspection, nondistended, normoactive bowel sounds and non-tender Palpation: Negative for guarding or rebound tenderness present Back/Spine no CVA tenderness and no thoracic nor lumbar tenderness Extremity normal to inspection General Extremety ED: Negative for edema or tenderness General Extremity: Negative for edema Neuro oriented x3 and no sensory deficits noted Sensorium / Orientation: awake and alert Skin no rashes or lesions noted and no wounds MDM MDM MDM Narrative Medical decision making narrative: Interventions / MDM: Differential diagnosis: Pneumonia Diagnosis considered but do not suspect: Rib fracture however image study negative My EKG interpretation: N/A Imaging independently reviewed and interpreted by myself: Noncontrast CT chest: No fracture however noted left lower lobe infiltrate. Gallstones noted reported small bowel pericholecystic fluid. External documents reviewed: N/A Test considered but not ordered:N/A ED course: Patient initially reported nursing did not want testing and just wanted pain medications. Vital signs are stable. However discussed with patient worsening pain questionable infiltrates with the fall. Agrees with CT noncontrast chest for further evaluation in the ED. CT scan negative for fractures. Left lower lobe infiltrate seen on CT. Patient vital stable not hypoxic. on Levaquin day 2 of 7. Incentive spirometer provided for home. Gallstones with paracolic fluid report from radiology. He has no abdominal pain. Written for tramadol and stool softeners to help with pain at night. Discussed return precautions. Outpatient follow-up. Re-evaluation: stable Disposition discussed with patient/family/significant other: Patient Case discussed with consulting clinician: N/A This note was generated with [employer] dictation software. It may contain incorrect words, spelling, and punctuation that were not noted in checking the note before signing. Radiography Diagnostic Testing: Clinical Impression(s) from Imaging Studies Chest CT 05/01/24 14:03 IMPRESSION: Left lower lobe consolidation and small left pleural effusion. Mild scarring at the right lung base. Multiple gallstones. Small amount of pericholecystic fluid. Electronically Signed: Darion Moreno MD at 14:53 EDT , Discharge Plan Triage Chief Complaint: Chest Other ED Provider: Mati Smith Dx/Rx/DC Orders Clinical Impression: Pneumonia, Pleurisy, Cholelithiasis Instructions: ED Pleurisy, ED Pneumonia (Adult) Prescriptions: New docusate sodium [Colace] 100 mg capsule 100 mg PO BID Qty: 30 0RF tramadol 50 mg tablet 50 mg PO Q6H PRN (Reason: pain) Qty: 12 0RF No Action amlodipine 5 mg Tablet 5 mg PO BID tamsulosin 0.4 mg Capsule 0.8 mg PO QHS nitroglycerin 0.4 mg Tablet, Sublingual 0.4 mg SUBLINGUAL Q5M PRN (Reason: Chest Pain) Rx Instructions: do not exceed 3 doses per episode fluticasone propionate 50 mcg/actuation [place],Suspension 1 spray INTRANASAL BID Rx Instructions: administer into each nostril irbesartan 300 mg Tablet 300 mg PO DAILY ezetimibe 10 mg Tablet 10 mg PO DAILY levalbuterol tartrate 45 mcg/actuation Hfa Aerosol Inhaler 2 puff INHALATION Q6H fluticasone propion-salmeterol [Advair HFA] 115-21 mcg/actuation Hfa Aerosol Inhaler 2 puff INHALATION BID Centrum [place] Men 300-600-300 mcg Tablet 1 tab PO DAILY azelastine-fluticasone 137-50 mcg/spray [place],Non-Aerosol See Rx Instructions .ROUTE .COMPLEX Rx Instructions: administer into each nostril albuterol sulfate [Ventolin HFA] 90 mcg/actuation HFA aerosol inhaler 1 - 2 puff inhalation Q4H PRN PRN (Reason: Wheezing) Qty: 1 0RF levofloxacin 750 mg tablet 750 mg PO DAILY Qty: 6 0RF Primary Care Provider: Lavell Cummings Referrals: Lavell Cummings MD [Primary Care Provider] - 3-5 Days Activity Restrictions/Additional Instructions: CT scan your chest no rib fractures left lower lobe pneumonia noted. Finish your antibiotic prescribed. Use the incentive spirometer provided for you every 2 hours while awake. Pain medicines as needed. Take stool softener to prevent constipation. Follow-up with your doctor. If symptoms worsens, return to ED for reevaluation. Print Language: Italian Disposition Disposition: Home, Self Care Discharge Date/Time: 05/01/24 15:32
[2024-05-01 15:31] VITALS: BP 134/78; PULSE 64; RESP 18; TEMP 36.6; O2SAT 99
== END 2024-05-01 15:32 | disposition home or self-care (01) ==
PROVIDERS: Emergency Provider Emergency Medicine; PCP Family Medicine; Visit Provider Emergency Medicine
DX: J18.9 Pneumonia, unspecified organism (principal); I10 Essential (primary) hypertension; K80.20 Calculus of gallbladder without cholecystitis without obstruction; R09.1 Pleurisy; E78.5 Hyperlipidemia, unspecified; I25.10 Atherosclerotic heart disease of native coronary artery without angina pectoris
CPT/HCPCS: 71250; 99282

== ENCOUNTER 2024-05-03 02:47 | Emergency (ER) | payer MEDICARE, BC, SELFPAY ==
[2023-03-21 10:56] VITALS: BMI 29.0
[2024-05-03 02:47] VITALS: BP 160/78; PULSE 85; RESP 16; TEMP 35.6; O2SAT 92; BMI 28.9
[2024-05-03 02:54] VITALS: BP 160/78; PULSE 85; RESP 16; TEMP 35.6; O2SAT 92
--- NOTE | 2024-05-03 03:01 | EX.ED.DYSGE1 ---
HPI History of Present Illness Chief Complaint: Nausea/Vomiting Informant: patient Onset/Context/Timing Onset: Days Context: Gradual Onset Timing: Continuous Quality: Nausea Location: Abdomen Worsened by: Nothing Relieved by: Nothing Narrative Narrative: Patient presents with nausea, vomiting, and constipation that has been getting worse over the past few days. Patient states he is currently on an antibiotic for pneumonia. Patient states that he feels like his pneumonia is improving. Patient states he has been having some constipation. Patient states he has been taking Colace with no improvement. Patient denies any hematemesis or coffee-ground emesis. Patient denies any melena or hematochezia. Patient admits to some subjective chills but denies any fevers. Patient denies any abdominal pain. [facility] Medical History Lumbar and sacral arthritis Fatigue Chronic knee pain Arthritis of facet joint of lumbar spine Heart murmur Osteoarthritis Patellofemoral arthralgia of both knees Asthma Chronic obstructive pulmonary disease (COPD) Congestive heart failure (CHF) Non-rheumatic aortic stenosis Aortic valve stenosis Coronary arteriosclerosis Hypertension Tremor, essential Parkinsons disease Hyperlipidemia Carcinoma Home Medications ?Medication ?Instructions ?Recorded ?Last Taken ?Type amlodipine 5 mg tablet 5 mg PO BID 01/19/23 Unknown History azelastine 137 mcg-fluticasone 50 See Rx Instructions .Route .COMPLEX 01/19/23 Unknown History mcg/spray nasal spray ezetimibe 10 mg tablet 10 mg PO DAILY 01/19/23 Unknown History fluticasone propionate 115 2 puff inhalation BID 01/19/23 Unknown History mcg-salmeterol 21 mcg/actuation HFA inhaler (Advair HFA) fluticasone propionate 50 1 spray intranasal BID 01/19/23 Unknown History mcg/actuation nasal spray,suspension irbesartan 300 mg tablet 300 mg PO DAILY 01/19/23 Unknown History levalbuterol tartrate 45 2 puff inhalation Q6H 01/19/23 Unknown History mcg/actuation aerosol inhaler [id number] 300 mcg-K 60 1 tab PO DAILY 01/19/23 Unknown History mcg-lycop 600 mcg-lutein 300 mcg tablet (Centrum Silver Men) nitroglycerin 0.4 mg sublingual 0.4 mg sublingual Q5M PRN Chest 01/19/23 Unknown History tablet Pain tamsulosin 0.4 mg capsule 0.4 mg PO BID 01/19/23 Unknown History albuterol sulfate 90 mcg/actuation 1 - 2 puff inhalation Q4H PRN PRN 04/29/24 Unknown Rx aerosol inhaler (Ventolin HFA) Wheezing #1 ea levofloxacin 750 mg tablet 750 mg PO DAILY #6 tabs 04/29/24 Unknown Rx docusate sodium 100 mg capsule 100 mg PO BID #30 caps 05/01/24 Unknown Rx (Colace) tramadol 50 mg tablet 50 mg PO Q6H PRN pain #12 tabs 05/01/24 Unknown Rx furosemide 40 mg tablet 40 mg PO DAILY 05/03/24 Unknown History Allergy/AdvReac Type Severity Reaction Status Date / Time Corticosteroids Allergy Rash Verified 05/03/24 04:19 (Glucocorticoids) (steroids) formoterol (From Foradil Allergy Other Verified 05/03/24 04:19 Aerolizer) doxycycline AdvReac Itching Verified 05/03/24 04:19 peanut AdvReac Anaphylaxis Verified 05/03/24 04:19 peas AdvReac Anaphylaxis Verified 05/03/24 04:19 Penicillins AdvReac Anaphylaxis Verified 05/03/24 04:19 Surgical History S/P lumbar fusion Status post transcatheter aortic valve replacement (TAVR) using bioprosthesis Social History household members: none Smoking Status: Former smoker how long ago did patient quit smoking: Smoked age 9-15. alcohol intake: current alcohol intake frequency: holidays/special occasions only substance use type: does not use ROS ROS ED Constitutional Constitutional ED: Reports chills and subjective; Denies fever(s) Eyes Eyes: Denies blurry vision or change in vision ENT ENT ED: Denies rhinorrhea or sore throat Cardiovascular Cardiovascular: Denies chest pain or palpitations Respiratory/Chest Respiratory/Chest: Denies cough or dyspnea Gastrointestinal Gastrointestinal: Reports constipation, nausea and vomiting; Denies abdominal pain Genitourinary Genitourinary ED: Denies dysuria or hematuria Musculoskeletal Musculoskeletal: Reports back pain; Denies neck pain Integumentary Denies abscess or rash Neurologic Neurologic: Denies headache(s) or weakness Allergic/Immunologic Allergic/Immunologic ED: Denies mouth swelling or urticaria EXAM Physical Exam Const Vital Signs: 05/03/24 02:47 05/03/24 02:54 Temperature 96.1 F L 96.1 F L Temperature Source Temporal Temporal Pulse Rate 85 85 Respiratory Rate 16 16 Blood Pressure 160/78 H 160/78 H Blood Pressure Mean 105 105 Pulse Ox 92 92 Oxygen Delivery Method Room Air Positive well nourished and well developed General Appearance ED: well developed and NAD HEENT Reports moist mucous membranes Neck supple and no JVD Resp normal respiratory effort and clear to auscultation bilaterally Cardio regular rate and regular rhythm GI non-tender and non-distended Palpation: soft Neuro oriented x3, CN's II-XII intact bilaterally and no sensory deficits noted Sensorium / Orientation: alert Motor Exam: strength 5/5 throughout Psych mental status grossly normal MDM MDM MDM Narrative Medical decision making narrative: Differential diagnosis includes constipation, medication side effect, gastritis, and bowel obstruction. Acute abdominal x-rays will be obtained to assess for bowel obstruction and pneumonia. CBC will be obtained to assess for leukocytosis and anemia. Basic metabolic profile will be obtained to assess for electrolyte abnormality and renal function. Lab Data Attestation: I reviewed the patient's lab results. Lab results narrative: CBC was reviewed. There is a mild anemia with a hemoglobin of 9.6 and hematocrit of 30.1. The remainder is within normal limits. Basic metabolic profile was reviewed and was essentially within normal limits. Labs: Laboratory Results - last 24 hr 05/03/24 03:27 WBC 5.0 RBC 3.33 L Hgb 9.6 L Hct 30.1 L MCV 90.4 MCH 28.8 MCHC 31.9 L RDW Std Deviation 42.4 RDW Coeff of Jamie 12.9 Plt Count 284 MPV 10.4 Immature Gran % (Auto) 3.400 H Neut % (Auto) 46.2 L Lymph % (Auto) 16.3 L Cowley % (Auto) 24.2 H Eos % (Auto) 9.5 H Baso % (Auto) 0.4 Absolute Neuts (auto) 2.3 Absolute Lymphs (auto) 0.81 L Nucleated RBC % 0 Sodium 137 Potassium 3.9 Chloride 106 Carbon Dioxide 27.0 Anion Gap 4 L BUN 18 Creatinine 0.97 Estim Creat Clear Calc 64.01 Est GFR (MDRD) Af Amer 94 Est GFR (MDRD) Non-Af 78 BUN/Creatinine Ratio 18.5 Glucose 122 H Calcium 8.8 Radiography Diagnostic Testing: Clinical Impression(s) from Imaging Studies Acute Abdomen Series 05/03/24 03:22 IMPRESSION: 1. Left basilar atelectasis versus infiltrate and probable small left pleural effusion. 2. No evidence of an acute intra-abdominal abnormality. 3. Large amount of stool retention. Electronically Signed: Lavell Taylor DO at 3:57 EDT , Acute abdominal x-rays were obtained. There are 4 views. On my independent interpretation, there is no evidence of bowel obstruction or perforation. There is a large amount of stool in the colon. There is left basilar atelectasis versus infiltrate and a small left pleural effusion. Radiologist also interpreted the x-rays and agrees. Treatment and Re-Evaluation :: Patient was given IV fluids. Patient was feeling better on reevaluation. Patient was advised of his findings. I offered the patient an enema to help with his constipation. He declined this. The patient was instructed to continue his Colace as prescribed. Patient was instructed to drink plenty of fluids. Patient was instructed to use [id number] MiraLAX as needed for constipation as well. Patient was instructed to follow-up with his primary care physician in 5 to 7 days. Patient understood and was agreeable with the plan. All questions were answered. Discharge Plan Triage Chief Complaint: Nausea/Vomiting Other Complaint: Constipation ED Provider: Baldo Cook Dx/Rx/DC Orders Clinical Impression: Pneumonia, Constipation Instructions: ED Constipation (Adult), ED Vomiting (Adult) Prescriptions: No Action amlodipine 5 mg Tablet 5 mg PO BID tamsulosin 0.4 mg Capsule 0.4 mg PO BID nitroglycerin 0.4 mg Tablet, Sublingual 0.4 mg SUBLINGUAL Q5M PRN (Reason: Chest Pain) Rx Instructions: do not exceed 3 doses per episode fluticasone propionate 50 mcg/actuation [place],Suspension 1 spray INTRANASAL BID Rx Instructions: administer into each nostril irbesartan 300 mg Tablet 300 mg PO DAILY ezetimibe 10 mg Tablet 10 mg PO DAILY levalbuterol tartrate 45 mcg/actuation Hfa Aerosol Inhaler 2 puff INHALATION Q6H fluticasone propion-salmeterol [Advair HFA] 115-21 mcg/actuation Hfa Aerosol Inhaler 2 puff INHALATION BID Centrum Silver Men 300-600-300 mcg Tablet 1 tab PO DAILY azelastine-fluticasone 137-50 mcg/spray [place],Non-Aerosol See Rx Instructions .ROUTE .COMPLEX Rx Instructions: administer into each nostril albuterol sulfate [Ventolin HFA] 90 mcg/actuation HFA aerosol inhaler 1 - 2 puff inhalation Q4H PRN PRN (Reason: Wheezing) Qty: 1 0RF levofloxacin 750 mg tablet 750 mg PO DAILY Qty: 6 0RF furosemide 40 mg tablet 40 mg PO DAILY docusate sodium [Colace] 100 mg capsule 100 mg PO BID Qty: 30 0RF tramadol 50 mg tablet 50 mg PO Q6H PRN (Reason: pain) Qty: 12 0RF Primary Care Provider: Lavell Cummings Referrals: Lavell Cummings MD [Primary Care Provider] - Print Language: [place] Citizen Disposition Disposition: Home, Self Care
[2024-05-03] MEDS: 0.9% Normal Saline (1000mL) 1,000 ML 1000 ML IV (03:21)
--- NOTE | 2024-05-03 03:22 | RAD_ITS ---
INDICATION: CONSTIPATION EXAMINATION/TECHNIQUE: X-RAY - XR Abdomen Series W/ Chest 1 View COMPARISON: 04/29/2024 chest x-ray. FINDINGS: --Chest: LINES/DEVICES: None. LUNGS: Left basilar atelectasis versus infiltrate. Small left pleural effusion. No evidence of a pneumothorax. MEDIASTINUM AND CARDIOVASCULAR STRUCTURES: Cardiac silhouette is normal in size and contour. Mediastinum is unremarkable. BONES AND SOFT TISSUES: No acute abnormality. --Abdomen: BOWEL GAS PATTERN: No evidence of dilated small bowel loops or abnormal air-fluid levels. Large amount of stool retention. FREE AIR: No evidence of free air. CALCIFICATIONS: No evidence of a urinary tract stone. BONES AND SOFT TISSUES: No acute abnormality. RAD/Acute Abdomen Inc Chest IMPRESSION: 1. Left basilar atelectasis versus infiltrate and probable small left pleural effusion. 2. No evidence of an acute intra-abdominal abnormality. 3. Large amount of stool retention. Electronically Signed: Lavell Taylor DO at 3:57 EDT ,
[2024-05-03 03:36] LABS: Absolute Lymphocyte Count 0.81 X10^3/uL (0.83-4.51); Absolute Neutrophil Count 2.3 X10^3/uL (2.0-7.7); Basophil# 0.02 X10^3/uL; Basophil% 0.4 % (0-1); Eosinophil# 0.47 X10^3/uL; Eosinophils% 9.5 % (0-5); Hematocrit 30.1 % (40-54); Hemoglobin 9.6 g/dL (13.0-16.5); Lymphocyte # 0.81 X10^3/ul (0.83-4.51); Lymphocyte % 16.3 % (19-41); Mean Corp Hgb Conc 31.9 g/dL (32-36); Mean Corpuscular Hgb 28.8 pg (27.0-32.0); Mean Corpuscular Volume 90.4 fL (80-94); Mean Platelet Vol. 10.4 fl (6.2-12.0); Monocyte% 24.2 % (0-10); NRBC Flagged by Analyzer 0 % (0-5); Neutrophil # 2.29 X10^3/uL (2.7-7.7); Neutrophil % 46.2 % (47-70); Platelet Count 284 K/mm3 (150-450); RBC Distribution Width CV 12.9 % (11.6-14.6); RBC Distribution Width SD 42.4 fl (35.1-43.9); Red Blood Count 3.33 M/mm3 (4.6-6.2)
[2024-05-03 03:49] LABS: Anion Gap 4 (5-15); BUN 18 mg/dL (7-18); BUN/Creat Ratio 18.5 RATIO (10-20); Calcium,Total 8.8 mg/dL (8.5-10.1); Chloride 106 mmol/L (98-107); Creatinine, Serum 0.97 mg/dL (0.70-1.30); EST Glomerular Filtration Rate 78 mL/min (>60); Est Glom Filt Rate - Afr Amer 94 mL/min (>60); Estimated Creatinine Clearance 64.01 ml/min; Glucose 122 mg/dL (74-106); Potassium 3.9 mmol/L (3.5-5.1); Sodium Level 137 mmol/L (136-145)
[2024-05-03 04:30] VITALS: BP 176/61; PULSE 64; RESP 18; TEMP 37.1; O2SAT 93
== END 2024-05-03 04:41 | disposition home or self-care (01) ==
PROVIDERS: Emergency Provider Emergency Medicine; PCP Family Medicine; Visit Provider Emergency Medicine
DX: J18.9 Pneumonia, unspecified organism (principal); I50.9 Heart failure, unspecified; I11.0 Hypertensive heart disease with heart failure; J44.9 Chronic obstructive pulmonary disease, unspecified; K59.00 Constipation, unspecified; I25.10 Atherosclerotic heart disease of native coronary artery without angina pectoris; Z95.2 Presence of prosthetic heart valve; Z79.899 Other long term (current) drug therapy; Z87.891 Personal history of nicotine dependence
CPT/HCPCS: 74022; 80048; 85025; 99283; A4216; J2405